=== PATIENT | male | born 1955 | race Caucasian/White ===

== ENCOUNTER → 2022-06-11 | Day surgery (SDC) | payer OTHER ==
[~2022-06-11] VITALS: Ht 175.3 cm; Wt 97.5 kg
[~2022-06-11] MED LIST: AMARYL2 MG PO; LEVOTHYROXINE PO; LEVOTHYROXINE75 MC2 PO; METFORMIN HCL500 MG PO; POTASSIUM CITRATE PO; PRILOSEC20 MG PO; PRINIVIL10 MG PO
[2022-06-11 08:15] LABS: HCT 43.8 % (42.0-52.0); HGB 14.8 g/dl (13.2-18.0); MCH 29.8 pg (25.0-31.0); MCHC 33.8 g/dL (32.0-36.0); MCV 88.3 fL (78.0-100.0); MPV 10.3 fL (6.0-9.5); RBC 4.96 M/uL (4.70-6.00); RDW 13.3 % (11.5-14.0); WBC 6.9 K/uL (4.0-10.5)
[2022-06-11 08:18] LABS: ALBUMIN 4.2 g/dL (3.4-5.0); BILIRUBIN - TOTAL 0.7 mg/dL (0.2-1.0); CREATININE 0.82 mg/dL (0.67-1.17); POTASSIUM 4.2 mmol/L (3.5-5.1); TOTAL PROTEIN 8.2 g/dL (6.4-8.2)
== END | disposition home or self-care (01) ==
LOC: FAS 07:25
PROVIDERS: Surgery
DX: Z12.11 Encounter for screening for malignant neoplasm of colon (principal); K57.30 Diverticulosis of large intestine without perforation or abscess without bleeding; K63.5 Polyp of colon; K58.9 Irritable bowel syndrome, unspecified; K21.9 Gastro-esophageal reflux disease without esophagitis; I10 Essential (primary) hypertension; E78.00 Pure hypercholesterolemia, unspecified; E11.9 Type 2 diabetes mellitus without complications; Z79.82 Long term (current) use of aspirin; Z80.0 Family history of malignant neoplasm of digestive organs; Z82.49 Family history of ischemic heart disease and other diseases of the circulatory system; Z82.0 Family history of epilepsy and other diseases of the nervous system
CPT/HCPCS: 36415; 80053; J1610; J2704; J7120